=== PATIENT | female | born 1935 | race Caucasian/White ===

== ENCOUNTER 2016-04-27 11:36 | Emergency (ER) | payer MEDICARE ==
[2016-04-27 12:03] LABS: URINE BILIRUBIN NEGATIVE (NEGATIVE); URINE BLOOD TRACE (NEGATIVE); URINE GLUCOSE (UA) NEGATIVE (NEGATIVE); URINE LEUKOCYTE ESTERASE TRACE (NEGATIVE); URINE NITRITE NEGATIVE (NEGATIVE); URINE PROTEIN TRACE (NEGATIVE); URINE UROBILINOGEN NORMAL (0-1 mg/dl)
[2016-04-27 12:06] LABS: URINE APPEARANCE CLEAR; URINE COLOR YELLOW
[2016-04-27 12:15] LABS: URINE BACTERIA 1+; URINE EPITHELIAL CELLS MANY /hpf; URINE WBC 0-1 /hpf
[2016-04-27] MEDS ORDERED: SODIUM CHLORIDE 0.9% 1,000 ML ONE (12:36)
[2016-04-27 12:48] LABS: ABSOLUTE NEUTROPHIL COUNT 5.8 K/mm3 (1.8-7.7); BASO % 0.4 % (0.2-1.0); HEMATOCRIT 40.4 % (37.0-47.0); HEMOGLOBIN 13.7 gm/l (12.0-16.0); IMM NEUT% 0.3 % (0-1); LYMPH # 1.1 (1.0-4.8); LYMPH % 14.2 % (15-45); MEAN CELL VOLUME 97.6 fl (81.0-99.0); MEAN CORPUSCULAR HEMOGLOBIN 33.1 pg (27.0-31.0); MEAN CORPUSCULAR HGB CONC 33.9 g/dl (33.0-37.0); MEAN PLATELET VOLUME 9.4 fl (7.4-10.4); MONO # 0.7 (0.0-0.8); MONO % 8.8 % (4-12); NEUT % 76.3 % (43-75); PLATELET COUNT 291 K/mm3 (130-400)
--- NOTE | 2016-04-27 13:08 | CT ---
HEAD W/O CON COMPARISON: Head CT without contrast, 07/15/2010 HISTORY: Confusion for 2 weeks, after a fall. Initial encounter. TECHNIQUE: Using a [employer] [address] scanner, images were obtained through the head. An automated dose reduction technique was used to minimize patient radiation dose. DOSE INFORMATION: CTDIvol (mGy): 51.70 DLP(mGycm): 938.90 FINDINGS: Mass: None Intracranial Hemorrhage: None Acute Infarction: None Cerebral hemispheres: No acute finding. No change. Mild atrophy and moderate decreased attenuation of the white matter. Basal ganglia: Normal Thalami: Normal Brainstem: Normal Cerebellum: Normal Ventricles: Normal Basilar cisterns: Normal Corpus callosum: Normal Pituitary fossa: Normal Middle ears and mastoid air cells: Normal Orbits and sinuses: Normal Skull and scalp: Normal Dural sinuses and vessels: Atherosclerosis of the internal carotid arteries. IMPRESSION: No acute finding or significant change compared to 07/15/2010. 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 Atherosclerosis of the internal carotid arteries. The report was sent to the emergency department [employer] medical record system 04/27/2016 at 13:09
--- NOTE | 2016-04-27 13:40 | RAD ---
Exam: Two-view chest COMPARISON: 03/12/2014 and 08/08/2012 INDICATION: Fall 2 weeks ago. Confusion. FINDINGS: PA and lateral views of the chest were obtained. Lungs remain hyperinflated. Cardiac silhouette is within normal limits and stable. There is no focal airspace disease or pleural effusion. No pneumothorax is identified. Osteopenia. No displaced rib fracture or periosteal reaction is seen. IMPRESSION: No acute pulmonary process.
[2016-04-27 13:41] LABS: ALB/GLOB RATIO 1.4 (>1.0); ALBUMIN 4.6 gm/dL (3.5-5.7); CALCIUM 10.1 mg/dL (8.6-10.3)
== END 2016-04-27 15:01 | disposition home or self-care (01) ==
LOC: ED 11:36
DX: R44.3 Hallucinations, unspecified (principal); R00.0 Tachycardia, unspecified; T42.6X5A Adverse effect of other antiepileptic and sedative-hypnotic drugs, initial encounter; K58.9 Irritable bowel syndrome, unspecified; Z79.899 Other long term (current) drug therapy
CPT/HCPCS: 85025; 87086; 80053; 81001; 71020; 70450; 99284 ×2; 96360; J7030

== ENCOUNTER 2016-06-21 14:26 | Emergency (ER) | payer MEDICARE | END 2016-06-21 15:55 | disposition home or self-care (01) | LOC: ED 14:26 | DX: G89.29 Other chronic pain (principal); M54.9 Dorsalgia, unspecified ==